=== PATIENT | female | born 1975 | race Caucasian/White ===

== ENCOUNTER → 2017-01-13 04:15 | Emergency (ER) | payer SELFPAY ==
[~2017-01-13 04:15] MED LIST: HYDROcodone/ACETAMIN 5-325 MG* 1 TAB PO ONE; Ketorolac INJ* 60 MG/2 ML VIAL IM ONE; Ondansetron ODT TAB* 4 MG PO ONE
[2017-01-13 07:13] LABS: Urine Bilirubin Negative (Negative); Urine Glucose Negative (Negative); Urine Nitrite Negative (Negative)
--- NOTE | 2017-01-13 09:03 | ED ---
Vernon Gary Alfonso, scribed for Li Crandall MD on 01/13/17 at 0629 . Headache - HPI Summary HPI Summary: This patient is a 41 year old F presenting to [facility] with a chief complaint of a frontal SAWANT gradually worsening since approximately 0300 today. The patient rates the pain 9/10 in severity. Symptoms aggravated by bright light. Symptoms alleviated by nothing. 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 Patient reports photophobia, dizziness, nausea, and vomiting. Patient denies fever, sinus pressure, neck pain, CP, SOB, and abdominal pain. Denies trauma or heavy lifting. PMHx includes HIV, states her counts are "undetectable". Pt denies hx migraine. No fam hx of aneurysm. Pt is from [place] and gets her HIV care in [place]. States she is here in [place] to help her nephew who has been snorting illicit drugs. - History Of Current Complaint Chief Complaint: EDHeadache Stated Complaint: HEADACHE Time Seen by Provider: 01/13/17 05:38 Hx Obtained From: Patient Hx Last Menstrual Period: hysterectomy Onset/Duration: Gradual Onset, Started hours ago, Still Present Currently Pain Is: Current Pain Scale(0-10)= - 9/10 Timing: Constant Character: Pressure Location of Headache: Frontal Aggravating Factor: Bright Lights Allevating Factors: Nothing Associated Signs And Symptoms: Other (Noted In Comments) - photophobia, dizziness, nausea, and vomiting. Patient denies fever, sinus pressure, neck pain , CP, SOB, and abdominal pain. - Risk Factors Meningitis Risk Factors: Immune Deficiency - Allergies/Home Medications Allergies/Adverse Reactions: Allergies Allergy/AdvReac Type Severity Reaction Status Date / Time No Known Allergies Allergy Verified 01/13/17 07:01 PMH/Surg Hx/FS Hx/Imm Hx Previously Healthy: No - HIV+ Opthamlomology History: Denies: Hx Legally Blind EENT History: Denies: Hx Deafness - Surgical History Surgery Procedure, Year, and Place: hysterectomy Infectious Disease History: Yes Infectious Disease History: Reports: Hx Human Immunodeficiency Virus (HIV) Denies: Traveled Outside the US in Last 30 Days - Family History Known Family History: Positive: Diabetes - Social History Alcohol Use: Rare Substance Use Type: Reports: None Smoking Status (MU): Heavy Every Day Tobacco Smoker Review of Systems Negative: Fever Positive: Photophobia Positive: Other - Negative sinus pressure Negative: Chest Pain Negative: Shortness Of Breath Positive: Vomiting, Nausea. Negative: Abdominal Pain Positive: Other - Negative neck pain Skin: Negative Neurological: Other - dizziness Positive: Headache Psychological: Normal All Other Systems Reviewed And Are Negative: Yes Physical Exam Triage Information Reviewed: Yes Vital Signs On Initial Exam: Initial Vitals Temp Pulse Resp BP Pulse Ox 97.6 F 84 20 126/69 100 01/13/17 04:23 01/13/17 04:23 01/13/17 04:23 01/13/17 04:23 01/13/17 04:23 Vital Signs Reviewed: Yes Appearance: Positive: Well-Appearing, Well-Nourished, Pain Distress Skin: Positive: Warm, Skin Color Reflects Adequate Perfusion Head/Face: Positive: Normal Head/Face Inspection Eyes: Positive: EOMI, MANN, Conjunctiva Clear, Other: - Fundi: discs are sharp and flat. Photophobia. ENT: Positive: Normal ENT inspection, Hearing grossly normal, Pharynx normal, TMs normal Neck: Positive: Supple, Nontender, No Lymphadenopathy, Other: - Good chin to chest, neg Kernig's and Brudzinski Respiratory/Lung Sounds: Positive: Clear to Auscultation, Breath Sounds Present , Other - No respiratory distress Cardiovascular: Positive: RRR, Pulses are Symmetrical in both Upper and Lower Extremities, Other - Brisk capillary refill. Negative: Murmur Abdomen Description: Positive: Nontender, Soft Bowel Sounds: Positive: Present Musculoskeletal: Positive: Strength/ROM Intact Neurological: Positive: Sensory/Motor Intact, Alert, Oriented to Person Place, Time, CN Intact II-III, Normal Gait, Facial Symmetry, Speech Normal Psychiatric: Positive: Normal - Arnold Coma Scale Coma Scale Total: 15 Diagnostics - Vital Signs Vital Signs Temp Pulse Resp BP Pulse Ox 01/13/17 04:23 97.6 F 84 20 126/69 100 - Laboratory Lab Results: Lab Results 01/13/17 Range/Units 07:00 Urine Color Straw Urine Appearance Clear Urine pH 5.0 (5-9) Ur Specific [place] 1.005 L (1.010-1.030) Urine Protein Negative (Negative) Urine Ketones Negative (Negative) Urine Blood Negative (Negative) Urine Nitrate Negative (Negative) Urine Bilirubin Negative (Negative) Urine Urobilinogen Negative (Negative) Ur Leukocyte Esterase Negative (Negative) Urine Glucose Negative (Negative) Lab Statement: Any lab studies that have been ordered have been reviewed, and results considered in the medical decision making process. Re-Evaluation - Re-Evaluation First Eval Re-Evaluation Time: 08:20 - still rates pain a "5" after toradol and zofran Change: Improved Headache Course/Dx - Course Assessment/Plan: This patient is a 41 year old F presenting to [facility] with a chief complaint of a frontal SAWANT gradually worsening since approximately 0300 today. The patient rates the pain 9/10 in severity. Symptoms aggravated by bright light. Symptoms alleviated by nothing. 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 Patient reports photophobia, dizziness, nausea, and vomiting. Patient denies fever, sinus pressure, neck pain, CP, SOB, and abdominal pain. PMHx includes HIV. In the ED course the patient was given Toradol and Zofran and hydrocodone/acetaminophen 5/325 with relief of her symptoms. [facility] pharmacy called and advised not to fill hydrocodone RX. RX sent to [facility]. - Diagnoses Differential Diagnosis/HQI/PQRI: Migraine, Sinus Headache, Tension Headache Provider Diagnoses: Headache Discharge - Discharge Plan Condition: Stable Disposition: HOME Prescriptions: HYDROcodone/ACETAMIN 5-325 MG* [[place] 5-325 TAB*] 1 tab PO Q6H PRN #12 tab MDD 4 PRN Reason: Pain Ondansetron ODT TAB* [Zofran 4 MG Odt TAB*] 4 mg PO Q6H PRN #12 tab.odt PRN Reason: Nausea Patient Education Materials: Acute Headache (ED) Referrals: Non Staff,Doctor [Primary Care Provider] - Additional Instructions: You received toradol injectable, zofran and hydrocodone/acetaminophen 5/325mg in the ER with relief of your headache. F/u with your nurse practitioner or return to the ER if you have any new or worsening symptoms. The documentation as recorded by the Vernon allen Alfonso accurately reflects the service I personally performed and the decisions made by , Li Crandall MD.
[2017-01-13 09:15] VITALS: BP 122/64
--- NOTE | 2017-01-14 01:49 | ED ---
Progress - Progress Note Progress Note: 01/13/17 1900: [facility] from [facility] questioning whether to fill hydrocodone RX, noting that pt has oxycodone 10 filled less than one month ago. Pt was not i-stopped by myself prior to DC. Agree with pharmacist not to fill hydrocodone. Hydrocodone RX cancelled. B Raz RUIZ. Re-Evaluation - Re-Evaluation First Eval Re-Evaluation Time: 08:20 - still rates pain a "5" after toradol and zofran Change: Improved Course/Dx - Diagnoses Provider Diagnoses: Headache
== END | disposition home or self-care (01) ==
LOC: ED 04:15
DX: R51 Headache (principal); B20 Human immunodeficiency virus [HIV] disease
CPT/HCPCS: 81003; 96372; 99282; A9270-GY; J1885

== ENCOUNTER 2018-04-15 11:09 | Inpatient (IN) | payer MEDICAID ==
[2018-04-15] MEDS ORDERED: NS 0.9% 1000 ML** 1,000 ML IV ONE (11:57)
--- NOTE | 2018-04-15 11:57 | ED ---
Headache - HPI Summary HPI Summary: A 42 y/o female brought in by [facility] ambulance presents to [facility] with a chief complaint of a severe headache since 10:15 04/15/17. The patient also c/o dizziness, N/V , and intermittent tingling in both of her hands. She states that her symptoms all came on within a minute. She describes her dizziness as like she is about to faint. She is photophobic and states that since her onset of her headache her vision was "hazy". She also c/o left sided weakness. Her headache is left frontal and she describes this headache as the worst she ever had. She denies neck pain, CP, SOB, fever and flu-like symptoms. Her speech is normal. Dr. Crandall in room at 11:50 for exam. No Hx of CVA or kidney problems. Roseanne Jang called at 11:57. Taken to CT at 12:[address] Rob[address] and Dr. Crandall. Pt with hx HIV, cared for at [facility], with CD4 count "in 500s". She takes Biktarvy, Trazadone, Neurontin and Xanax. She denies a Hx of migraines. [facility] records show one prior visit for headache that resolved with pain medication in 01/2017. Vital signs while in room: HR: 79 bpm, BP 132/96 - History Of Current Complaint Chief Complaint: EDEyeProblem Stated Complaint: HEADACHE Time Seen by Provider: 04/15/18 11:43 Hx Obtained From: Patient, Medical Records Hx Last Menstrual Period: hysterectomy Onset/Duration: Sudden Onset, Started hours ago, Still Present Initially Headache Was: "Worst Headache Ever", Initial Pain Scale(0-10)= - 10 Currently Pain Is: Current Pain Scale(0-10)= - 10 Timing: Constant Character: Unable To Describe - Worst headache she has ever had Location of Headache: Frontal - left Radiates to: no Aggravating Factor: Bright Lights Allevating Factors: Nothing Associated Signs And Symptoms: Negative - fever, neck pain, chest pain, SOB, Dizziness, Nausea, Vomiting, Visual Changes - "hazy" - Allergies/Home Medications Allergies/Adverse Reactions: Allergies Allergy/AdvReac Type Severity Reaction Status Date / Time Gadolinium-Containing Allergy Severe Shortness Verified 04/15/18 12:16 Contrast Medi of Breath Home Medications: Home Medications ALPRAZolam TAB* [Xanax TAB*] 1 mg PO TID PRN 04/15/18 [History Confirmed ] Bictegrav/Emtricit/Tenofov Ala [Biktarvy 50-200-25 mg Tablet] 1 tab PO DAILY 06/29 [History Confirmed 04/15/18] Gabapentin CAP(*) [Neurontin 400 mg CAP(*)] 800 mg PO DAILY 04/15/18 [History Confirmed 04/15/18] traZODone TAB* [Desyrel TAB*] 150 mg PO BEDTIME 04/15/18 [History Confirmed 06/29] PMH/Surg Hx/FS Hx/Imm Hx Previously Healthy: No - HIV with good CD4 counts History: Denies: Hx Kidney Infection Sensory History: Denies: Hx Legally Blind, Hx Deafness Opthamlomology History: Denies: Hx Legally Blind Neurological History: Denies: Hx CVA - Surgical History Surgery Procedure, Year, and Place: hysterectomy Infectious Disease History: No Infectious Disease History: Reports: Hx Human Immunodeficiency Virus (HIV) Denies: Traveled Outside the US in Last 30 Days - Family History Known Family History: Positive: Diabetes - Social History Alcohol Use: Rare Substance Use Type: Reports: None Smoking Status (MU): Heavy Every Day Tobacco Smoker Review of Systems Negative: Fever Eyes: Other - positive: vision was "hazy" Positive: Photophobia Negative: Chest Pain Negative: Shortness Of Breath Positive: Vomiting, Nausea Positive: no symptoms reported Musculoskeletal: Negative - neck pain Skin: Negative Neurological: Other - positive: dizziness, speech is normal Positive: Headache, Weakness - left sided , Paresthesia - both hands Psychological: Normal All Other Systems Reviewed And Are Negative: Yes Physical Exam - Summary Physical Exam Summary: Appearance: Ill-appearing, severe pain distress, well-nourished Skin: Warm, color reflects adequate perfusion, dry Head: Normal Head/Face inspection, atraumatic Eyes: Conjunctiva clear, PERRL, EOMI, no nystagmus ENT: Normal inspection, TMs clear, pharynx clear Neck: Supple, no nodes, no JVD, good chin to chest, no meningismus Respiratory: Lungs clear, normal breath sounds, no respiratory distress Cardio: RRR, No murmur, pulses normal, brisk capillary refill Abdomen: Soft, nontender, nondistended, no masses Bowel sounds: Present Musculoskeletal: Strength Intact/ROM intact, no calf tenderness, no edema. Psychological: Normal Neuro: Alert O x 3, CN II-XII intact, muscle tone normal, left arm and left leg weakness 4/5, sensation intact See NIH, NIH 2 Triage Information Reviewed: Yes Vital Signs On Initial Exam: Initial Vitals Temp Pulse Resp BP Pulse Ox 97.3 F 69 19 110/70 100 04/15/18 11:11 04/15/18 11:11 04/15/18 11:11 04/15/18 11:11 04/15/18 11:11 Vital Signs Reviewed: Yes - [place] Coma Scale Best Eye Response: 4 - Spontaneous Best Motor Response: 6 - Obeys Commands Best Verbal Response: 5 - Oriented Coma Scale Total: 15 Procedures - Lumbar Puncture Lateral Procedural Sedation: none Position: Lateral Decubitus Aseptic Technique: Local Anesthesia, Lidocaine Anesthesia Used: 2.0% Lido Spinal Needle Used: 22 Gauge Lumbar Puncture Note: Informed consent obtained. Time out procedure completed. Patient voices no questions or concerns. Understands risk vs. benefits. Patient in left lateral decubitus position, sterile technique. Betadine prep, 2% Lidocaine plain, local anesthesia, 5 mls #22 Gauge spinal needle inserted in L4-L5 interspace, clear fluid obtained, opening pressure 100cms H2O. Closing pressure 98cms H2O. Fluid sent for studies. Patient lying flat in no distress. Patient tolerated procedure well. Diagnostics - Vital Signs Vital Signs Temp Pulse Resp BP Pulse Ox 04/15/18 11:11 97.3 F 69 19 110/70 100 - Laboratory Result Diagrams: 04/16/18 06:15 04/16/18 06:15 Lab Statement: Any lab studies that have been ordered have been reviewed, and results considered in the medical decision making process. - Radiology CXR Radiology Interpretation Completed By: Radiologist Summary of Radiographic Findings: No evidence for acute intrathoracic disease. ED provider has reviewed this imaging report. - CT Head CTA CT Interpretation Completed By: Radiologist Summary of CT Findings: 1. Normal CT angiography of the head and neck. 2. There is no pathologic narrowing of the carotid arteries according to NASCET criteria. ED provider has reviewed this imaging report. Brain CT CT Interpretation Completed By: Radiologist Summary of CT Findings: No acute intracranial pathology. ED provider has reviewed this imaging report. Brain MRI CT Interpretation Completed By: Radiologist Summary of CT Findings: No intracranial lesion is identified. No evidence of restriction of diffusion. is noted. ED provider has reviewed this imaging report. - EKG 12:19 Cardiac Rate: Other Rate - Sinus arrythmia at [address] Segment: Non-Specific Ectopy: None Summary of EKG Findings: Sinus arrythmia at 63 bpm with nl AVIVCT, nl QTc, no acute changes and no prior EKG to compare with. Re-Evaluation - Re-Evaluation First Eval Re-Evaluation Time: 13:14 Change: Improved Comment: Discussed plan of lumbar puncture to eval for poss subarachnoid hemorrhage. HR 66 bpm, BP 118/72, O2 Sat 98. Second Eval Re-Evaluation Time: 13:32 Change: Unchanged Comment: Lumbar puncture being done. Third Eval Re-Evaluation Time: 15:30 Change: Unchanged Comment: MRI says MRI will happen at 16:00, patient continues to complain of pain, patient will be given fentanyl 100mcg, advised CSF results are negative so far. Fourth Eval Re-Evaluation Time: 17:35 Change: Unchanged Comment: Discussed results of brain MRI with patient. Still has a SAWANT rates it a 7. Plan admission for pain control. Headache Course/Dx - Course Course Of Treatment: A 42 y/o female brought in by [facility] ambulance presents to [facility] with a chief complaint of a severe headache since 10:15 04/15/17. Her NIH was 2 as she had left arm and left leg weakness. Roseanne Jang was called at 11:57. Dr. Roberson, neuro, evaluated the patient.Her EKG showed sinus arrythmia at [address], CTA head and neck, and CXR were negative. Lumbar puncture done to eval for possible subarachnoid hemorrhage despite neg CT brain (after informed consent)(see procedure note) and CSF results are negative for subarachnoid hemorrhage and infection. In the ED course the patient was given Lidocaine for local anesthesia for LP, Zofran and Dilaudid, Fentanyl IV and IV NS. Brain MRI was negative. Case discussed with Dr. Love, hospitalist, and she accepted the patient for admission for pain control and further evaluation. The patient is agreeable with this plan. - Diagnoses Differential Diagnosis/HQI/PQRI: CVA, Meningitis, Migraine, Subarachnoid Hemorrhage, Tension Headache - 30 mins Provider Diagnoses: Thunderclap headache, Intractable pain During the Visit The Following Alert/Code Occurred: Code Quan - 11:57am - Physician Notifications Discussed Care Of Patient With: Ramona Love Time Discussed With Above Provider: 15:45 Instructed by Provider To: Admit As Inpatient - Critical Care Time Critical Care Time: 30-74 min - 30 mins Discharge - Sign-Out/Discharge Documenting (check all that apply): Patient Departure - admit - Discharge Plan Condition: Good Disposition: ADMITTED TO [facility] - Billing Disposition and Condition Condition: GOOD Disposition: Admitted to [facility] - Attestation Statements Document Initiated by Scribe: Yes Documenting Scribe: Tyler Pablo Provider For Whom Vickiee is Documenting (Include Credential): Dr. Li Crandall MD Scribe Attestation: Tyler Gary scribed for Dr. Li Crandall MD on 04/22/18 at 2315. Scribe Documentation Reviewed: Yes Provider Attestation: The documentation as recorded by the kapilibTyler schmitt accurately reflects the service I personally performed and the decisions made by me, Dr. Li Crandall MD Status of Scribe Document: Viewed NIH Scale - NIH Scale Level of Consciousness: Alert/Keenly Responsive Ask Patient the Month and His/Her Age: Both Correct Ask Pt to Open/Close Eyes and Spool Winder/Release Non-Paretic Hand: Both Correctly Best Gaze (Only Horizontal Eye Movement): Normal Visual Field Testing: No Visual Loss Facial Paresis-Pt to Smile & Close Eyes or Grimace Symmetry: Normal/Symmetrical Motor Function - Right Arm: No Drift-Holds 10 Seconds Motor Function - Left Arm: No Drift-Holds 10 Seconds Motor Function - Right Leg: No Drift-Holds 10 Seconds Motor Function - Left Leg: Drifts LT 10 seconds Limb Ataxia-Must be out of Proportion to Weakness Present: Absent Sensory (Use Pinprick to Test Arms/Legs/Trunk/Face): Pinprick Less on Affected Best Language (Describe Picture, Name Items): No Aphasia Dysarthria (Read Several Words): Normal Extinction and Inattention: No Abnormality Total Score: 2 Consult Consult: At 17:47 Discussed Code jang evaluation, LP and MRI results with Dr. Roberson, neuro who evaluated pt in ED upon initial presentation.
[2018-04-15] MEDS ORDERED: Iodixanol* (CONTRAST) 320 MG/ML 100 ML SDV IV ONE (12:13)
[2018-04-15] MEDS ORDERED: HYDROmorphone INJ1* 1 MG/ML SYRINGE IV SLOW PU ONE ×2 (12:30→13:15)
[2018-04-15] MEDS ORDERED: Ondansetron INJ* 2 MG/ML VIAL IV ONE (12:32)
[2018-04-15 12:37] LABS: ABS Basophils 0 10^3/ul (0-0.2); ABS Eosinophils 0.1 10^3/ul (0-0.6); ABS Lymphocytes 1.6 10^3/ul (1.0-4.8); ABS Monocytes 0.7 10^3/ul (0-0.8); ABS Neutrophils 3.9 10^3/ul (1.5-7.7); ABS Nucleated RBC 0 10^3/ul; Eosinophil % 1.6 %; Hematocrit 40 % (35-47); Hemoglobin 13.6 g/dl (12.0-16.0); Lymphocyte % 25.1 %; Mean Corpuscular HGB Conc 34 g/dl (31-36); Mean Corpuscular Hemoglobin 31 pg (27-31); Mean Corpuscular Volume 91 fL (80-97); Mean Platelet Volume 7.6 fL (7.4-10.4); Nucleated Red Blood Cells % 0; Platelet Count 264 10^3/ul (150-450); Red Blood Count 4.36 10^6/ul (4.00-5.40); Red Cell Distribution Width 13 % (10.5-15); White Blood Count 6.4 10^3/ul (3.5-10.8)
[2018-04-15 12:42] LABS: Urine Appearance Clear; Urine Bilirubin Negative (Negative); Urine Blood Negative (Negative); Urine Color Straw; Urine Glucose Negative (Negative); Urine Ketones Negative (Negative); Urine Nitrite Negative (Negative); Urine Protein Negative (Negative); Urine Urobilinogen Negative (Negative)
[2018-04-15 12:46] LABS: Activated Partial Thrombo Time 29.6 seconds (26.0-36.3); INR 0.82 (0.77-1.02)
[2018-04-15 13:00] LABS: Albumin 4.1 g/dL (3.2-5.2); Albumin/Globulin Ratio 1.6 (1-3); BUN/Creatinine Ratio 23.8 (8-20); EGFR African American 73.1 (>60); EGFR Non-African American 60.4 (>60); Globulin 2.5 g/dL (2-4); HDL Cholesterol 46.4 mg/dL; Potassium 4.1 mmol/L (3.5-5.0); Total Bilirubin 0.2 mg/dL (0.2-1.0); Total Protein 6.6 g/dL (6.4-8.9)
[2018-04-15] MEDS ORDERED: Lidocaine 2% PF * 5 ML VIAL ONE (13:32)
[2018-04-15] MEDS ORDERED: Lidocaine 2% PF * 5 ML VIAL INJ ONE (13:33)
[2018-04-15 14:34] LABS: Body Fluid Source Cerebral Spinal
[2018-04-15 14:56] LABS: Body Fluid Mono 28 %
[2018-04-15 14:58] LABS: CSF Glucose 67 mg/dL (40-70)
[2018-04-15] MEDS ORDERED: fentaNYL* 50 MCG/ML 2 ML VIAL (100 MCG VIAL) IV SLOW PU ONE (15:31)
--- NOTE | 2018-04-15 15:47 | CONS ---
NEUROLOGY CONSULTATION: DATE OF CONSULT: 04/15/18 LOCATION: She is an inpatient in the emergency room 12. REFERRING PHYSICIAN: Dr. Crandall. CHIEF COMPLAINT: Headache. HISTORY OF PRESENT ILLNESS: Lashonda Ott is a 42-year-old woman who works for [employer] in [employer] who is at work this morning at around 10 o'clock when suddenly she had a severe left frontal and retroorbital headache. It was intense in onset and "the worst headache of my life." She vomited soon after that. She was sent by ambulance to the emergency room. In the emergency room, she continued by intense left frontal orbital headache. There was perhaps a little bit of blurry vision up to her left side, but it was fairly subtle. She did not have any initial additional symptoms to report and she did not lose consciousness at onset. With examination, however, she exhibited signs of diminished sensation on her left side and perhaps decreased coordination on her left side. She does not have any neck pain and no recent head trauma. She did not have prior history of headaches "like this" but she has been to the emergency room couple of years ago with a bad headaches, treated as a migraine. She states she gets a bad headache about every few months, but nothing like what she is having currently. She has not had any recent fevers, infections, sore throats, or change in medications. PAST MEDICAL HISTORY: Notable for HIV positivity with good control by her verbal report by her infectious disease specialist in [place]. MEDICATIONS: At home consist of: 1. Minipress 1 mg p.o. q.h.s. 2. Gabapentin 900 mg p.o. t.i.d. 3. Lidoderm patch daily. 4. Sertraline 25 mg p.o. daily. 5. Alprazolam 1 mg p.o. t.i.d. p.r.n. 6. Trazodone 150 mg p.o. q.h.s. 7. Zofran 4 mg p.o. q.6 hours p.r.n. 8. Biktarvy 1 p.o. daily. ALLERGIES: She had severe shortness of breath to GADOLINIUM, but no other drug allergies. PHYSICAL EXAM: She is well hydrated and well nourished and a bit overweight. Temperature 97.3, blood pressure initially 110/70 and has been as high as 143/83 , but not higher. Heart rate generally running in the 50s and 60s and regular. Respiratory rate 17 and oxygen saturation is 97% on room air. Heart is in a regular rhythm without murmurs. Lungs are clear anterolaterally. There are no cervical bruits. Neck is supple. Oral mucosa is moist. On neurological exam, pupils react equally from 4 down to 2 mm. Funduscopic exam is normal bilaterally. Visual desai are intact to confrontation with a sense of some blurriness in the inferior temporal field out of the left eye only when tested monocularly. Facial musculature is symmetric. Palate and tongue appear normal, and tongue protrudes in the midline, and there is no dysarthria. Facial sensation is reported as absent pinprick in the left side and decreased if not absent light touch in the left side, but normal sensation on the right. Motor exam in the limbs reveals good strength other than some weakness in the left upper extremity and some bobbing of the left limb with variable resistance in the left leg. Strength is otherwise normal in the limbs. Sensory exam is reported as diminished light touch and pin discrimination in the left arm and leg. Finger taps are telegraphic and irregular with the left hand, normal on the right. [id number] maneuver is normal. Reflexes are intact and symmetric and plantar responses are flexor bilaterally. She is alert, oriented and anxious. Her memory seems perfectly intact and language is fluent. DIAGNOSTIC STUDIES/LAB DATA: Includes a CT scan of the brain and CT angiogram of brain and neck, which I reviewed and which are all looking to be normal and are interpreted as such. EKG reveals sinus rhythm after review with Dr. Crandall, but it is interpreted electronically as atrial fibrillation. Other laboratory data notable for normal urinalysis, normal chemistry profile other than borderline creatinine of 1.01, normal lactic acid 0.8, and normal CBC and INR. IMPRESSION: Impression is that of a thunderclap headache. Differential diagnosis including subarachnoid hemorrhage, aneurysmal or otherwise, cervical dissection, reversible cerebral vasoconstrictive syndrome, hypertensive encephalopathy. The CTA and CT scan of the brain are reassuring. Discussed with Dr. Crandall that I recommend doing a lumbar puncture to increase the certainty that there is no subarachnoid hemorrhage. In regards to a possible cerebral ischemic event, I think it is very unlikely. I would not expect it to start paroxysmally other than with the dissection and none is evident. Her sensory exam and motor exam are bit inconsistent and sounds that those symptoms only developed in findings on exam when she got here. I suspect that anxiety is playing a role in that component. If her lumbar puncture is negative, I would recommend getting an MRI scan of the brain without contrast to look for evidence of CVST. If that is negative and her symptoms resolved with symptomatic therapy, then I think we can presume that this is a benign thunderclap headache, probably a manifestation of her previous migraines, and probably will need further workup. I will follow her along as the results of her study is come through. [id number]/[facility] #: [id number] MTDD
[2018-04-15] MEDS ORDERED: Ondansetron INJ* 2 MG/ML VIAL IV PRN (17:23)
[2018-04-15] MEDS ORDERED: Acetaminophen TAB* 325 MG PO PRN (17:23)
[2018-04-15] MEDS ORDERED: HYDROmorphone INJ* 1 MG/ML CARPUJECT SYRINGE IV SLOW PU PRN (17:25)
[2018-04-15] MEDS ORDERED: Metoclopramide IV* 5 MG/ML 2 ML VIAL IV SLOW PU ONE (17:37)
[2018-04-15] MEDS ORDERED: diPHENhydraMINE PO* 50 MG PO ONE (17:37)
[2018-04-15] MEDS ORDERED: Ketorolac INJ* 30 MG/ML 1 ML VIAL IV PUSH ONE (17:47)
[2018-04-15] MEDS ORDERED: Dexamethasone IV* 4 MG/ML 1 ML (4 MG) IV SLOW PU ONE (17:48)
[2018-04-15] MEDS: Metoclopramide IV* 5 MG/ML 2 ML VIAL IV SLOW PU SCH ×2 (18:25→23:15)
--- NOTE | 2018-04-15 19:39 | HP ---
CC: GAY Phillips; Dr. Lance Roberson * ADMISSION HISTORY AND PHYSICAL: DATE OF ADMISSION: 04/15/18 PRIMARY CARE PROVIDER: GAY Phillips, of the infectious disease group through [facility]. MY ATTENDING WHILE IN THE HOSPITAL: Dr. Ramona Love.* (DICTATED BY GAY DÍAZ) CONSULTING NEUROLOGIST: Dr. Lance Roberson. CHIEF COMPLAINT: Thunderclap headache. HISTORY OF PRESENT ILLNESS: Ms. Ott is a 42-year-old female with past medical history significant for HIV and migraines, who presents to the emergency department with sudden onset of unilateral severe headache at approximately 10:15 this morning with feelings of presyncope and nausea. The patient has had headaches like this before, but never anything nearly to this severity. The patient has had no recent changes in her meds. The patient's HIV is under good control per the patient and had a recent CD4 and HIV viral loads. The patient was transported to the emergency department and had a negative CT and CTA of her head. The patient had no recent illnesses. The patient had weakness on her left side along with decreased sensation and paresthesias in her bilateral hands. The patient did not take anything for her headache before coming in. The patient had no other aura-like symptoms except possibly a feeling of general unwellness this morning. The patient had no other changes in her vision. The patient denies fevers, chills, abdominal pain , diarrhea, dysuria. The patient has no known history of aneurysm. The patient has significant anxiety and depression, which she manages with alprazolam at home. The patient in the emergency department was seen in consultation by Dr. Lance Roberson, who recommended a head CTA and brain MRI believing this was a thunderclap headache, but needing to rule out subarachnoid hemorrhage. The patient had a negative lumbar puncture and negative brain CT and CTA; however, the patient was continuing to have severe headaches and we are asked to evaluate for admission for pain control. PAST MEDICAL HISTORY: 1. HIV positivity, on HAART. 2. Migraines. 3. Depression. 4. Anxiety. PAST SURGICAL HISTORY: Hysterectomy. MEDICATIONS: 1. Zofran 4 mg p.o. q.6 hours as needed. 2. Gabapentin 800 mg p.o. daily. 3. Trazodone 150 mg p.o. at bedtime. 4. Xanax 1 mg p.o. t.i.d. as needed. 5. Biktarvy 50/200/25 one tab p.o. daily. ALLERGIES: GADOLINIUM. FAMILY HISTORY: The patient's parents both have diabetes and hypertension. The patient's maternal grandfather of an ME. The patient's paternal grandmother of heart disease. The patient has a brother who is in good health. SOCIAL HISTORY: The patient is a current 7-bjduuutlz-jhi-day smoker. The patient drinks alcohol rarely and uses marijuana rarely. 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 The patient is estranged from her and has 2 children. The patient's surrogate decision maker will be her friend, Emily Crowley. REVIEW OF SYSTEMS: A 14-point review of systems was reviewed and is negative except as above in the HPI. PHYSICAL EXAMINATION GENERAL: The patient is a 42-year-old female, who appears stated age and sitting comfortably in bed, in no acute distress. VITAL SIGNS: Temperature 97.3, pulse rate 65, respiratory rate 21, oxygen saturation 93% on room air, blood pressure 105/73. HEENT: Head: Normocephalic, atraumatic. Sclerae anicteric. No conjunctival injection. Nasal mucosa moist. Oral mucosa moist. No pharyngeal erythema, discharge or exudate. NECK: Supple, nontender. No lymphadenopathy. No carotid bruits auscultated. No JVD. RESPIRATORY: Clear to auscultation bilaterally. No wheezes, rales, or rhonchi. Good air exchange bilaterally. CARDIAC: Regular rate and rhythm. No clicks, murmurs, gallops, or rubs. Pulses are 2+ in the bilateral dorsalis pedis, posterior tibialis, and radial areas. No bilateral lower extremity edema noted. ABDOMEN: Soft, nontender, nondistended. Bowel sounds present and normoactive in all 4 quadrants. No hepatosplenomegaly. No abdominal bruits auscultated. No hepatojugular reflux. GENITOURINARY: No suprapubic or CVA tenderness. NEUROLOGIC: The patient has decreased sensation to light touch on the entirety of the left side of her body as well as 4/5 strength in the left upper and lower extremities distally and proximally. The patient has no difficulty with cerebellar testing. Cranial nerves are otherwise intact. No focal deficits. Alert and oriented x3. PSYCHIATRIC: Pleasant and cooperative. SKIN: Clean, dry, and intact. No rash. DIAGNOSTIC STUDIES/LAB DATA: White blood cell count of 6.4, hemoglobin 13.6, hematocrit 40, platelet count 264. INR of 0.82, APTT 29.6. Sodium 139, potassium 4.1, chloride 106, carbon dioxide 29, anion gap 4, BUN 24, creatinine 1.01, glucose 90, lactic acid 0.8, calcium 9.0. Bilirubin 0.2, AST 16, ALT 15, alkaline phosphatase 63. Troponin I of 0.00. Total protein 6.6, albumin 4.1, globulin 2.5. Triglycerides 256, cholesterol 169, LDL cholesterol 71, HDL cholesterol 46.4. Urine benign. CSF shows 1 white blood cell, 0 neutrophils, glucose 67, protein of 29. Studies: Brain CT read as no acute intracranial pathology. Chest x-ray read as no evidence for intrathoracic disease. Head CTA read as no pathologic narrowing of the carotid arteries according to NASCET criteria. No need for CT head and neck. Brain MRI read as no intracranial lesion is noted. No evidence of restriction or diffusion is noted. EKG is unremarkable. ASSESSMENT AND PLAN/IMPRESSION: Ms. Ott is a 42-year-old female with past medical history significant for migraines, human immunodeficiency virus positivity, who presents to the emergency department with a thunderclap headache of sudden onset with associated nausea and unilateral weakness and decreased sensation. The patient's LP and brain imaging have successfully ruled out an aneurysm or hemorrhage. The patient will be admitted to the hospital for symptomatic migraine treatment. 1. Thunderclap headache. The patient has been ruled out with a CTA, lumbar puncture and MRI for vasospastic disease as well as intracranial hemorrhage or acute stroke. 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 The patient will be treated in the emergency department with Reglan, Toradol, steroids. The patient has already received 3 mg of IV Dilaudid and 100 mcg of fentanyl. The patient will have Toradol and Reglan available as needed for continued headaches. The patient has been seen in consultation by Dr. Lance Roberson, who made these recommendations. 2. Human immunodeficiency virus positivity. Continue the patient's HAART while in the hospital. 3. Anxiety/depression. Continue the patient's gabapentin, alprazolam, and trazodone while in the hospital. 4. DVT prophylaxis: The patient will be placed on heparin subcu. 5. Fluids, electrolytes, nutrition: The patient will have a heart-healthy diet with caffeine okay and will have fluids at 100 mL an hour. 6. Code status: The patient is a full code. TIME SPENT: Approximately 60 minutes was spent on the admission of this patient , 30 of which was spent [id number] with the patient obtaining history and physical and discussing treatment plan. This plan was discussed with my attending, Dr. Ramona Love, and she is in agreement. GAY DÍAZ [id number]/CPS #: [id number] JERONIMO
[2018-04-15] MEDS: ALPRAZolam TAB* 0.5 MG PO PRN (20:41)
[2018-04-15] MEDS: NS 0.9% 1000 ML** 1,000 ML IV SCH (20:44)
[2018-04-15] MEDS ORDERED: traZODone TAB* 100 MG PO SCH (21:00)
[2018-04-15] MEDS: Heparin VIAL(*) 5000 UNITS/ML VIAL (FIVE THOUSAND) SUBCUT SCH (21:31)
[2018-04-15] MEDS: Ketorolac INJ* 15 MG/ML 1 ML VIAL IV PUSH PRN (21:47)
[2018-04-16] MEDS: Metoclopramide IV* 5 MG/ML 2 ML VIAL IV SLOW PU SCH ×3 (04:58→17:14)
[2018-04-16] MEDS: Heparin VIAL(*) 5000 UNITS/ML VIAL (FIVE THOUSAND) SUBCUT SCH ×2 (04:58→15:05)
[2018-04-16 06:35] LABS: ABS Basophils 0 10^3/ul (0-0.2); ABS Eosinophils 0 10^3/ul (0-0.6); ABS Monocytes 0.3 10^3/ul (0-0.8); ABS Neutrophils 4.3 10^3/ul (1.5-7.7); ABS Nucleated RBC 0 10^3/ul; Eosinophil % 0.2 %; Hematocrit 39 % (35-47); Hemoglobin 13.5 g/dl (12.0-16.0); Lymphocyte % 17.8 %; Mean Corpuscular HGB Conc 34 g/dl (31-36); Mean Corpuscular Hemoglobin 32 pg (27-31); Mean Corpuscular Volume 92 fL (80-97); Mean Platelet Volume 7.6 fL (7.4-10.4); Nucleated Red Blood Cells % 0; Platelet Count 239 10^3/ul (150-450); Red Blood Count 4.29 10^6/ul (4.00-5.40); Red Cell Distribution Width 13 % (10.5-15); White Blood Count 5.7 10^3/ul (3.5-10.8)
[2018-04-16 06:53] LABS: BUN/Creatinine Ratio 22.7 (8-20); Calcium 8.7 mg/dL (8.6-10.3); EGFR African American 85.7 (>60); EGFR Non-African American 70.8 (>60); Potassium 4.1 mmol/L (3.5-5.0)
[2018-04-16] MEDS ORDERED: Gabapentin CAP(*) 400 MG PO SCH (09:00)
[2018-04-16] MEDS ORDERED: [UNRECOGNIZED DRUG - OTHER] PO SCH (09:00)
[2018-04-16] MEDS: Ketorolac INJ* 15 MG/ML 1 ML VIAL IV PUSH PRN ×2 (09:01→15:03)
[2018-04-16] MEDS: NS 0.9% 1000 ML** 1,000 ML IV SCH (09:06)
[2018-04-16] MEDS: ALPRAZolam TAB* 0.5 MG PO PRN ×2 (09:23→15:02)
[2018-04-16] MEDS: HYDROmorphone INJ1* 1 MG/ML SYRINGE IV SLOW PU PRN ×2 (11:04→15:28)
[2018-04-16 14:26] LABS: CSF VDRL Negative (Negative)
[2018-04-16 18:06] VITALS: BP 120/65
[2018-04-16 18:46] LABS: HSV 1 PCR, CSF Negative (Negative); HSV 2 PCR, CSF Negative (Negative)
--- NOTE | 2018-04-17 00:33 | DS ---
DISCHARGE SUMMARY: DATE OF ADMISSION: 04/15/18 DATE OF DISCHARGE: 04/16/18 PRIMARY CARE PROVIDER: GAY Burton, of infectious disease group through [facility]. CONSULTING PHYSICIAN: Dr. Lance Roberson, neurology. ATTENDING PHYSICIAN: Dr. Bright Quijano * (dictated by Shannon Workman NP). PRIMARY DIAGNOSIS: Headache. SECONDARY DIAGNOSES: 1. Human immunodeficiency virus positive, on HAART. 2. Migraines. 3. Depression. 4. Anxiety. CONSULTATIONS WHILE IN THE HOSPITAL: Dr. Roberson, neurology. PROCEDURES WHILE IN THE HOSPITAL: None. STUDIES WHILE IN THE HOSPITAL: 1. Brain CT: Impression: No acute intracranial pathology. 2. Chest x-ray: Impression: No evidence of acute intrathoracic disease. 3. Electrocardiogram: Impression: Normal sinus rhythm with rate of 55 to 68. 4. Head CTA: Impression: Normal CT angiography of the head and neck. There is no pathological narrowing of the carotid arteries according to the NASCET criteria. 5. Brain MRI: Impression: No intracranial lesion is identified. No evidence of restriction of diffusion is noted. DISCHARGE MEDICATIONS: [place] Medications: 1. Tramadol 25 mg p.o. q.8 hours p.r.n. migraine/headache. 2. Reglan 5 mg p.o. q.8 hours p.r.n. migraine/headache. Continued Home medications: 1. Gabapentin 800 mg p.o. daily. 2. Xanax 1 mg p.o. t.i.d. p.r.n. 3. Trazodone 150 mg p.o. at bedtime. 4. Zofran 4 mg p.o. q.6 hours p.r.n. 5. Biktarvy 1 tab p.o. daily. No home medications were discontinued or changed. HISTORY OF PRESENT ILLNESS/HOSPITAL COURSE: Ms. Ott is a 42-year-old female with past medical history significant for HIV and migraines who presented to the emergency room on 04/15/18 with the sudden onset of unilateral severe headache at approximately 10:15 this morning. Please see history and physical dictated by Fredi Herzog for complete summary of [id number] admission, but in short the patient presented to the ED with a headache, and due to severity of headache and report of "thunderclap headache" and describing headache as worse than her normal migraines, the patient underwent further eval. While in the ED, the patient had a CTA and brain MRI in order to rule out subarachnoid hemorrhage which were negative. In addition, the patient had a negative lumbar puncture. Due to the severity of the headache and the patient requiring IV pain medications, she was admitted to the hospital for pain control and observation. During this hospital stay, the patient was receiving IV pain medication including Dilaudid 1 mg, Toradol 15 mg. In addition, she was receiving Reglan 10 mg. She was also reevaluated by Dr. Lance Roberson today. The patient states her headache has improved and she would like to be discharged. Ms. Ott is stable for discharge. Vital signs as follows: Temp 98.1, HR 83, RR 18, O2 saturation 98% on room air, BP 120/65. REVIEW OF SYSTEMS: The patient reports she continues to have a headache, but it is less severe than previously. She denies dizziness, numbness, tingling, difficulty finding words, difficulty swallowing, lightheadedness, chest pain, palpitations, nausea, vomiting. A 12-point review of systems was completed and all others negative. PHYSICAL EXAM: General: Ms. Ott is a 42-year-old female who appears stated age and is sitting comfortably in bed. She is in no acute distress. HEENT: EOMs intact. PERRLA. Oral mucosa moist without lesions. Neck: Supple, nontender. No lymphadenopathy. Respiratory: Clear to auscultation bilaterally. No wheezes, rhonchi, or rales. Good aeration. Cardiac: Regular rate and rhythm. No murmurs, rubs, or gallops. Pedal pulses 2+ bilaterally. No lower extremity edema. Abdomen: Soft, nontender, nondistended. Bowel sounds x4. Neurological: Sensation is grossly intact. Strength in the upper and lower extremities is 5/5 bilaterally. Cranial nerves intact. No focal deficits. Alert and oriented x4. Psychiatric: The patient is pleasant and cooperative. Skin: Clean, dry, intact. LABORATORY DATA: WBC 5.7, hemoglobin 13.5, hematocrit 39. Sodium 137, potassium 4.1, chloride 109, carbon dioxide 23, BUN 20, creatinine 0.88. FOLLOWUP/DISCHARGE PLAN: 1. Headache/migraine: The patient is expressing relief as migraine/headache pain has decreased. Dr. Roberson was consulted and agrees this is possibly migraine headache. The patient has been cleared for discharge by Neurology. The patient will be discharged with Ultram and Reglan p.o. p.r.n. I personally reviewed the patient's I-STOP and she last received controlled substance in early March and it was only 14 days' worth. The patient should follow up with her primary care provider for further evaluation/treatment of headaches. If the headaches/migraines persist, Dr. Roberson would be happy to see her as an outpatient for further evaluation and treatment. I have provided the patient with Dr. Roberson's contact information. 2. HIV positive: Continue HAART. 3. Anxiety and depression: Continue gabapentin, alprazolam, trazodone. 4. Education: The patient should return to the ER or nearest hospital if she experiences any worsening of symptoms, shortness of breath, lightheadedness, dizziness, chest discomfort, high fevers, chills, night sweats, loss of consciousness, or any other worsening signs or symptoms. This is a summarized report of a complex medical history and hospital stay. For further details, please see the entire medical record. The plan was also discussed with my attending, Dr. Quijano, who agrees with my plan. TIME SPENT: Approximately 45 minutes were spent on this discharge, greater than half that time was spent [id number] with the patient discussing the discharge plans and instructions. SHANNON WORKMAN, [place] [id number]/[facility] #: [id number] JERONIMO
[2018-04-17 21:40] LABS: B. garinii/B. afzellii PCR Negative (Negative); Lyme Disease Source CSF
== END 2018-04-16 19:00 | disposition home or self-care (01) | DRG 103 ==
LOC: ED 11:09 → MEDTELE 17:23 → OBSVTOIN 04-16 16:00
PROVIDERS: ADMIT Hospitalist; ATTEND Internal Medicine
PROC: 009U3ZX Drainage of Spinal Canal, Percutaneous Approach, Diagnostic (ICD-10-PCS; principal; 2018-04-15)
DX: G44.53 Primary thunderclap headache (principal); G43.909 Migraine, unspecified, not intractable, without status migrainosus; Z21 Asymptomatic human immunodeficiency virus [HIV] infection status; F32.9 Major depressive disorder, single episode, unspecified; F41.9 Anxiety disorder, unspecified; F17.200 Nicotine dependence, unspecified, uncomplicated; R40.2362 Coma scale, best motor response, obeys commands, at arrival to emergency department; R40.2142 Coma scale, eyes open, spontaneous, at arrival to emergency department; R40.2252 Coma scale, best verbal response, oriented, at arrival to emergency department; I49.9 Cardiac arrhythmia, unspecified; R29.702 NIHSS score 2; Z90.710 Acquired absence of both cervix and uterus; Z83.3 Family history of diabetes mellitus; Z91.041 Radiographic dye allergy status
CPT/HCPCS: 36415; 70450; 70496; 70498; 70551; 71045; 80048; 80053; 80061; 81003; 82945; 83605; 84157; 84484; 85025; 85610; 85730; 86592; 86850; 86900; 86901; 87070; 87205; 87476; 87529; 87798; 87899; 89051; 93005; 96374; 96375; 99285; A9270-GY; G0378; J1100; J1170; J1644; J1885; J2405; J2765; J3010; Q9967

== ENCOUNTER → 2018-04-28 20:02 | Emergency (ER) | payer SELFPAY ==
[~2018-04-28 20:02] MED LIST changes: -HYDROcodone/ACETAMIN 5-325 MG* 1 TAB PO ONE; +Ketorolac INJ* 30 MG/ML 1 ML VIAL IV PUSH ONE; -Ketorolac INJ* 60 MG/2 ML VIAL IM ONE; +LORazepam TAB(*) 1 MG PO ONE; +NS 0.9% 1000 ML* 1,000 ML IV ONE; -Ondansetron ODT TAB* 4 MG PO ONE; +PROCHLORPERAZINE INJ 5 MG/ML 2 ML VIAL IV ONE; +hydrOXYzine HCL TAB* 50 MG PO ONE
--- NOTE | 2018-04-28 20:29 | ED ---
Headache - HPI Summary HPI Summary: A 42 y/o female accompanied by her daughter presents to the ED c/o headache reaching 10/10 in severity. In the ED room, the patient has a pulse of 92 BPM, O2 saturation of 93%, and blood pressure of 100/61. Additionally c/o syncopal episode. As per triage, "Pt presents to ED for syncopal episode 1 hr ago. Pt states she woke up outside in the snow and walked home. Abrasion to right knee. Now pt complains of severe headache and nausea". According to the patient, she left the hospital yesterday. She stated that today, she was getting off the bus and walking to her home when the next thing she realizes is waking up on the ground as she had LOC. Patient stated that there were no warning signs such as lightheadedness, except a severe headache she has been experiencing since leaving the hospital. 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 The patient scrapped her right knee due to the fall. Patient is unsure how long she was unconscious but she doesn't think long. She stated that she got up and walked the rest of the way home after. - History Of Current Complaint Chief Complaint: EDHeadache Stated Complaint: ANXIETY Time Seen by Provider: 04/28/18 20:09 Hx Obtained From: Patient Hx Last Menstrual Period: hysterectomy Onset/Duration: Sudden Onset, Started days ago, Still Present, Worse Since Initially Headache Was: "Worst Headache Ever", Severe - 10/10 Currently Pain Is: Severe - 10/10 Timing: Constant Character: Migraine Location of Headache: Diffuse Radiates to: NO Aggravating Factor: Bright Lights Allevating Factors: Nothing Associated Signs And Symptoms: Nausea - Allergies/Home Medications Allergies/Adverse Reactions: Allergies Allergy/AdvReac Type Severity Reaction Status Date / Time Gadolinium-Containing Allergy Severe Shortness Verified 04/28/18 20:12 Contrast Medi of Breath PMH/Surg Hx/FS Hx/Imm Hx Cardiovascular History: Denies: Hx Pacemaker/ICD Respiratory History: Reports: Hx Pneumonia History: Denies: Hx Kidney Infection Musculoskeletal History: Reports: Hx Back Problems Sensory History: Denies: Hx Contacts or Glasses, Hx Legally Blind, Hx Deafness, Hx Hearing Aid Opthamlomology History: Denies: Hx Contacts or Glasses, Hx Legally Blind Neurological History: Reports: Hx Seizures Denies: Hx CVA, Hx Headaches, Hx Migraine, Hx Nerve Disease, Hx Spinal Cord Injury Psychiatric History: Denies: Hx Panic Disorder - Surgical History Surgery Procedure, Year, and Place: hysterectomy Infectious Disease History: No Infectious Disease History: Reports: Hx Human Immunodeficiency Virus (HIV) Denies: Hx of Known/Suspected MRSA, Traveled Outside the [place] in Last 30 Days - Family History Known Family History: Positive: Diabetes - Social History Alcohol Use: Rare Substance Use Type: Reports: None Smoking Status (MU): Heavy Every Day Tobacco Smoker Review of Systems Negative: Fever Positive: Photophobia Positive: Nausea Neurological: Other - NEGATIVE: LIGHTHEADEDNESS Positive: Headache, Syncope All Other Systems Reviewed And Are Negative: Yes Physical Exam - Summary Physical Exam Summary: Appearance: Well-appearing, Well-nourished, lying in bed comfortably. Patient is somewhat anxious and tearful. Skin: Warm, dry, no obvious rash Eyes: sclera anicteric, no conjunctival pallor ENT: mucous membranes moist, pharynx appears normal Neck: Supple, nontender Respiratory: Clear to auscultation, no signs of respiratory distress Cardiovascular: Normal S1, S2. No murmurs. Normal distal pulses in tibial and radial bilaterally. Abdomen: Soft, nontender, normal active bowel sounds present Musculoskeletal: Normal, Strength/ROM Intact, Motor function in all 4 extremities is normal and symmetric. There is no rigidity or tremor noted. Neurological: A&Ox3, awake and alert, mentation is normal, speech is fluent and appropriate, Level of consciousness nml. The patient is alert and oriented. Cranial nerves are grossly intact. Gaze is conjugate and without nystagmus. Peripheral vision is intact to confrontation. There are no gross sensory abnormalities to light touch. There is no truncal or fine motor ataxia. Gait is normal. Psychiatric: affect is normal, does not appear anxious or depressed GCS: 15 Triage Information Reviewed: Yes Vital Signs On Initial Exam: Initial Vitals Temp Pulse Resp BP Pulse Ox 98.1 F 85 19 100/61 98 04/28/18 20:08 04/28/18 20:08 04/28/18 20:08 04/28/18 20:08 04/28/18 20:08 Vital Signs Reviewed: Yes - Valentín Coma Scale Best Eye Response: 4 - Spontaneous Best Motor Response: 6 - Obeys Commands Best Verbal Response: 5 - Oriented Coma Scale Total: 15 Diagnostics - Vital Signs Vital Signs Temp Pulse Resp BP Pulse Ox 04/28/18 20:08 98.1 F 85 19 100/61 98 - Laboratory Result Diagrams: 04/28/18 20:55 04/28/18 20:55 Lab Statement: Any lab studies that have been ordered have been reviewed, and results considered in the medical decision making process. - CT BRAIN CT CT Interpretation Completed By: Radiologist Summary of CT Findings: 1. No acute intracranial abnormality. 2. No change from the comparison study. ED PHYSICIAN REVIEWED THIS RADIOLOGY REPORT. - EKG 2054 Cardiac Rate: NL - 74 BPM EKG Rhythm: Sinus Rhythm - 74 BPM Summary of EKG Findings: NSR at 74 BPM, P waves, QRS complex, and T waves are within normal limits, T waves and intervals are normal, no ischemic changes. This is a normal EKG. Headache Course/Dx - Course Course Of Treatment: A 42 y/o female accompanied by her daughter presents to the ED c/o headache reaching 10/10 in severity. According to the patient, she left the hospital yesterday. She stated that today, she was getting off the bus and walking to her home when the next thing she realizes is waking up on the ground as she had LOC. Patient stated that there were no warning signs such as lightheadedness, except a severe headache she has been experiencing since leaving the hospital. 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 The patient scrapped her right knee due to the fall. Physical examination findings significant for patient is somewhat anxious and tearful. A Brain CT revealed 1. No acute intracranial abnormality. 2. No change from the comparison study. GCS: 15. An EKG revealed NSR at 74 BPM, P waves, QRS complex, and T waves are within normal limits, T waves and intervals are normal, no ischemic changes. This is a normal EKG. Hematology and Chemistry screens were done. No significant laboratory abnormalities were found. In the ED course, the patient received Toradol, Atarax , Ativan, and Compazine. Patient will be signed out to Dr. Lucille Cheek via Dr. Luke Calle, further workup and evaluation, upon shift change on 04/28/2018 at 2200. Discharge - Sign-Out/Discharge Documenting (check all that apply): Sign-Out Patient - JENNY Signing out patient TO: Lucille Cheek Receiving patient FROM: Luke Calle - Discharge Plan Condition: Stable Referrals: No Primary Care Phys,NOPCP [Primary Care Provider] - - Attestation Statements Document Initiated by Scribe: Yes Documenting Scribe: Melo Lares Provider For Whom Scribe is Documenting (Include Credential): Luke Calle MD Scribe Attestation: Melo Gary, scribed for Luke Calle MD on 04/28/18 at 2206. Status of Scribe Document: Ready
[2018-04-28 21:04] LABS: ABS Basophils 0 10^3/ul (0-0.2); ABS Eosinophils 0.1 10^3/ul (0-0.6); ABS Lymphocytes 1.9 10^3/ul (1.0-4.8); ABS Monocytes 0.7 10^3/ul (0-0.8); ABS Neutrophils 3.5 10^3/ul (1.5-7.7); ABS Nucleated RBC 0 10^3/ul; Eosinophil % 2.2 %; Hematocrit 47 % (35-47); Hemoglobin 15.9 g/dl (12.0-16.0); Lymphocyte % 30.6 %; Mean Corpuscular HGB Conc 34 g/dl (31-36); Mean Corpuscular Hemoglobin 31 pg (27-31); Mean Corpuscular Volume 92 fL (80-97); Mean Platelet Volume 7.5 fL (7.4-10.4); Nucleated Red Blood Cells % 0; Platelet Count 252 10^3/ul (150-450); Red Blood Count 5.12 10^6/ul (4.00-5.40); Red Cell Distribution Width 14 % (10.5-15); White Blood Count 6.3 10^3/ul (3.5-10.8)
[2018-04-28 21:20] LABS: Albumin 4.5 g/dL (3.2-5.2); Albumin/Globulin Ratio 1.7 (1-3); BUN/Creatinine Ratio 19.6 (8-20); Calcium 9.6 mg/dL (8.6-10.3); EGFR Non-African American 53.6 (>60); Globulin 2.6 g/dL (2-4); Potassium 3.8 mmol/L (3.5-5.0); Total Bilirubin 0.3 mg/dL (0.2-1.0); Total Protein 7.1 g/dL (6.4-8.9)
[2018-04-28 22:25] LABS: TSH (Thyroid Stimulating Horm) 1.21 mcIU/mL (0.34-5.60)
--- NOTE | 2018-04-28 23:48 | ED ---
Progress - Progress Note Progress Note: This patient was signed out from Dr. Calle to Dr. Cheek upon shift change at 22 :00 04/28/18 pending lab results and disposition. Lab results are WNL. In the ED course she was given Toradol IV, Compazine IV, Ativan PO and Atarax PO. She will be discharged. She was instructed to follow up with sai Michelle. Strict return precautions given. She is agreeable with this plan. Re-Evaluation - Re-Evaluation First Eval Re-Evaluation Time: 01:42 Change: Unchanged Comment: Patient is ready for discharge Course/Dx - Course Course Of Treatment: This patient was signed out from Dr. Calle to Dr. Cheek upon shift change at 22:00 04/28/18 pending lab results and disposition. Lab results are WNL. In the ED course she was given Toradol IV, Compazine IV, Ativan PO and Atarax PO. She will be discharged. She was instructed to follow up with sai Michelle. Strict return precautions given. She is agreeable with this plan. - Diagnoses Provider Diagnoses: Headache Discharge - Sign-Out/Discharge Documenting (check all that apply): Patient Departure - DC - Discharge Plan Condition: Stable Disposition: HOME Forms: *Work Release Referrals: [facility] [facility] [place]Outside] (1-2 days) Lance Roberson MD [Medical Doctor] - Additional Instructions: Follow up with sai Michelle. RETURN TO THE EMERGENCY DEPARTMENT FOR CHANGING OR WORSENING SYMPTOMS. FOLLOW UP WITH PCP IN 1-2 DAYS. - Billing Disposition and Condition Condition: STABLE Disposition: Home - Attestation Statements Document Initiated by Scribe: No Documenting Scribe: Tyler Pablo Provider For Whom Scribe is Documenting (Include Credential): Lucille Cheek MD Scribe Documentation Reviewed: Yes
[2018-04-29 01:46] VITALS: BP 115/78
== END | disposition home or self-care (01) ==
LOC: ED 20:02
DX: R51 Headache (principal); R11.0 Nausea; F17.210 Nicotine dependence, cigarettes, uncomplicated
CPT/HCPCS: 36415; 70450; 80053; 84443; 84484; 85025; 93005; 96361; 96374; 96375; 99282; A9270-GY; J0780; J1885

== ENCOUNTER 2018-05-09 15:05 | Emergency (ER) | payer SELFPAY ==
[2018-05-09 15:35] VITALS: BP 122/80
[2018-05-09] MEDS ORDERED: HYDROcodone/ACETAMIN 5-325 MG* 1 TAB PO ONE ×3 (15:47→16:23)
--- NOTE | 2018-05-09 15:49 | UC ---
Respiratory Complaint HPI - HPI Summary HPI Summary: right rib pain after falling on ice and hitting her ribs - History of Current Complaint Chief Complaint: UCGeneralIllness Stated Complaint: RIB INJURY Time Seen by Provider: 05/09/18 15:40 Hx Obtained From: Patient Hx Last Menstrual Period: hysterectomy ?: No Onset/Duration: Sudden Onset, Lasting Days Timing: Constant Pain Intensity: 8 Pain Scale Used: 0-10 Numeric Aggravating Factors: Deep Breaths Alleviating Factors: Nothing Associated Signs And Symptoms: Positive: Negative - Allergies/Home Medications Allergies/Adverse Reactions: Allergies Allergy/AdvReac Type Severity Reaction Status Date / Time Gadolinium-Containing Allergy Severe Shortness Verified 04/28/18 20:12 Contrast Medi of Breath PMH/Surg Hx/FS Hx/Imm Hx Previously Healthy: No - HIV - Surgical History Surgical History: Yes Surgery Procedure, Year, and Place: hysterectomy - Family History Known Family History: Positive: Diabetes - Social History Occupation: Employed Full-time Lives: Alone Alcohol Use: Rare Substance Use Type: Marijuana Smoking Status (MU): Light Every Day Tobacco Smoker - Immunization History Most Recent Influenza Vaccination: 2018 Most Recent Pneumonia Vaccination: 2008 Review of Systems All Other Systems Reviewed And Are Negative: Yes Constitutional: Positive: Negative Skin: Positive: Negative Eyes: Positive: Negative ENT: Positive: Negative Respiratory: Positive: Negative Cardiovascular: Positive: Negative Gastrointestinal: Positive: Negative Genitourinary: Positive: Negative Motor: Positive: Negative Neurovascular: Positive: Negative Musculoskeletal: Positive: Arthralgia - right rib Neurological: Positive: Negative Psychological: Positive: Negative Is Patient Immunocompromised?: No Physical Exam Triage Information Reviewed: Yes Appearance: Well-Appearing, No Pain Distress, Well-Nourished Vital Signs: Initial Vital Signs Temp 97.7 F 05/09/18 15:30 Pulse 83 05/09/18 15:30 Resp 16 05/09/18 15:30 BP 122/80 05/09/18 15:30 Pulse Ox 99 05/09/18 15:30 Vital Signs Reviewed: Yes Eye Exam: Normal Eyes: Positive: Conjunctiva Clear ENT Exam: Normal ENT: Positive: Normal ENT inspection, Hearing grossly normal. Negative: TMs normal, Trismus, Muffled voice, Hoarse voice Dental Exam: Normal Neck exam: Normal Neck: Positive: Supple, Nontender, No Lymphadenopathy Respiratory Exam: Normal Respiratory: Positive: Chest non-tender, Lungs clear, Normal breath sounds, No respiratory distress, No accessory muscle use Cardiovascular Exam: Normal Cardiovascular: Positive: RRR, No Murmur, Pulses Normal, Brisk Capillary Refill Abdominal Exam: Normal Abdomen Description: Positive: Nontender, No Organomegaly, Soft. Negative: CVA Tenderness (R), CVA Tenderness (L) Bowel Sounds: Positive: Present Musculoskeletal Exam: Normal Musculoskeletal: Positive: Strength Intact, ROM Intact, No Edema Neurological Exam: Normal Neurological: Positive: Alert, Muscle Tone Normal Psychological Exam: Normal Skin Exam: Normal UC Diagnostic Evaluation - Laboratory O2 Sat by Pulse Oximetry: 99 - Radiology Summary of Radiographic Findings: no evidence of fracture Respiratory Course/Dx - Course Course Of Treatment: ice/heat - Differential Dx/Diagnosis Provider Diagnosis: Contusion of rib on right side Discharge - Sign-Out/Discharge Documenting (check all that apply): Patient Departure All imaging exams completed and their final reports reviewed: No Studies - Discharge Plan Condition: Stable Disposition: HOME Prescriptions: Ibuprofen TAB* [Motrin TAB* 600 MG] 600 mg PO Q6H PRN #30 tab PRN Reason: pain Patient Education Materials: Rib Contusion (ED) Referrals: No Primary Care Phys,NOPCP [Primary Care Provider] - - Billing Disposition and Condition Condition: STABLE Disposition: Home
== END 2018-05-09 16:35 | disposition home or self-care (01) ==
LOC: UCEAST 15:05
DX: S20.211A Contusion of right front wall of thorax, initial encounter (principal); W00.0XXA Fall on same level due to ice and snow, initial encounter; Y92.9 Unspecified place or not applicable; Z91.041 Radiographic dye allergy status; F17.200 Nicotine dependence, unspecified, uncomplicated
CPT/HCPCS: 99213; G0463

== ENCOUNTER 2018-06-01 13:28 | Emergency (ER) | payer MEDICAID ==
--- NOTE | 2018-06-01 14:08 | UC ---
Respiratory Complaint HPI - HPI Summary HPI Summary: 42 yo female presents with right rib pain. She tells me that about 3 weeks ago she fell and injured her right ribs. She was seen here and had a ribs and CXR that was negative. She was given a short course of pain medication, which helped. Since that time has been in significant pain that is not improved with ibuprofen. She states that she is breathing very shallow due to pain. Hurts to move, cough, or take deep breaths. Denies SOB, chest pain. - History of Current Complaint Chief Complaint: UCRespiratory Stated Complaint: RECHECK RIB INJURY Time Seen by Provider: 06/01/18 14:08 Hx Obtained From: Patient Hx Last Menstrual Period: hysterectomy Onset/Duration: Sudden Onset Severity Initially: Severe Severity Currently: Severe Pain Intensity: 8 Pain Scale Used: 0-10 Numeric - Allergies/Home Medications Allergies/Adverse Reactions: Allergies Allergy/AdvReac Type Severity Reaction Status Date / Time Gadolinium-Containing Allergy Severe Shortness Verified 06/01/18 13:50 Contrast Medi of Breath PMH/Surg Hx/FS Hx/Imm Hx - Additional Past Medical History Additional PMH: HIV Psychological History: Anxiety - Surgical History Surgical History: Yes Surgery Procedure, Year, and Place: hysterectomy - Family History Known Family History: Positive: Diabetes - Social History Occupation: Employed Full-time Lives: With Family Alcohol Use: None Substance Use Type: Marijuana Smoking Status (MU): Light Every Day Tobacco Smoker Amount Used/How Often: 2-3 cig/day Household Exposure Type: Cigarettes - Immunization History Most Recent Influenza Vaccination: 2018 Most Recent Pneumonia Vaccination: 2007 Review of Systems All Other Systems Reviewed And Are Negative: Yes Constitutional: Positive: Negative Skin: Positive: Negative Respiratory: Positive: Negative Cardiovascular: Positive: Negative Gastrointestinal: Positive: Negative Neurovascular: Positive: Negative Musculoskeletal: Positive: Other: - Right rib pain Neurological: Positive: Negative Psychological: Positive: Negative Physical Exam - Summary Physical Exam Summary: GENERAL: Moderate pain distress SKIN: No rashes, sores, lesions, or open wounds. NECK: Supple. Nontender. No lymphadenopathy. CHEST: CTAB. No r/r/w. No accessory muscle use. Shallow breathing. Holding right side due to pain CV: RRR. Without m/r/g. Pulses intact. Cap refill <2seconds MSK: Moderate TTP along ~9th/10th rib midaxillary and anterior aspect. Pain with twisting and UE movement. Abdomen: NTTP. Bowel sounds present. No ecchymosis or distention. NEURO: Alert. PSYCH: Age appropriate behavior. Triage Information Reviewed: Yes Vital Signs: Initial Vital Signs Temp 97.9 F 06/01/18 13:43 Pulse 110 06/01/18 13:43 Resp 18 06/01/18 13:43 BP 129/82 06/01/18 13:43 Pulse Ox 100 06/01/18 13:43 Vital Signs Reviewed: Yes UC Diagnostic Evaluation - Laboratory O2 Sat by Pulse Oximetry: 100 Re-Evaluation - Re-Evaluation First Eval Change: Worse - Acute pain distress. Inconsolable. Crying. HEENT: Airway patent and without edema. No facial edema. CHEST: CTAB. Hyperventilating. CV: RRR. Without m/r/g. Pulses intact. Brisk cap refill. NEURO: Exam limited due to acute pain. A&Ox3. III, IV, : EOMI. No nystagmus. PERRLA. V: Sensations intact and symmetric. VII: No facial asymmetry. Forehead wrinkles. Grins, shuts eyes, frowns, puffs cheeks. IX, X: Swallows and coughs. Uvula midline. XII: No tongue deviation [id number] are intact. Normal speech. No facial drooping. BP 151/112 Respiratory Course/Dx - Course Course Of Treatment: She was given norco for her pain in the clinic. CT: IMPRESSION: #. Subacute fracture of the RIGHT seventh rib anteriorly with early fracture healing. response. #. Negative for pleural effusion or pneumothorax. Was urgently called to the pt's room by nurse due to pain distress. Upon entering the room, pt was clutching her left eye and dry heaving. She was screaming in pain saying that she developed an acute left sided headache, dizziness, tingling of her fingers/lips, and "hazy" vision. She felt very weak and unable to stand. She said that this happened to her once in the recent past and she was admitted to the hospital for a workup and everything was normal - per pt. At this point she was transferred to a wheelchair and brought to a strecher. Placed on 2L O2 as she was hyperventilating and in inconsolable pain. She states she has had norco in the past without issue. Has a hx of migraines, but not similar to this. Ambulance was called due to uncontrolled/inconsolable acute pain. EKG performed and revealed NSR 92bpm No ST changes as read by Dr. Vázquez. NIHSS score of 0 (see re -eval for exam). Ambulance arrived and transferred pt to ED for further evaluation. I am unsure the cause of her abrupt severe pain and other symptoms. Low suspicion for CVA at this time. Suspect it could be a cluster migraine, but this would be an unusual presentation. - Differential Dx/Diagnosis Provider Diagnosis: Rib fracture, Headache, Dizziness, Weakness Discharge - Sign-Out/Discharge Documenting (check all that apply): Patient Departure All imaging exams completed and their final reports reviewed: Yes - Discharge Plan Condition: Stable Disposition: TRANS HIGHER LVL OF CARE FAC Referrals: No Primary Care Phys,NOPCP [Primary Care Provider] - - Billing Disposition and Condition Condition: STABLE Disposition: Trans Higher Lvl of Care Fac
[2018-06-01] MEDS ORDERED: HYDROcodone/ACETAMIN 5-325 MG* 1 TAB PO ONE (14:17)
[2018-06-01] MEDS ORDERED: Ondansetron ODT TAB* 4 MG SL ONE (15:07)
[2018-06-01 15:26] VITALS: BP 152/112
== END 2018-06-01 15:30 | disposition short-term general hospital (02) ==
LOC: UCEAST 13:28
DX: S22.31XA Fracture of one rib, right side, initial encounter for closed fracture (principal); W19.XXXA Unspecified fall, initial encounter; Y92.9 Unspecified place or not applicable; R51 Headache; R42 Dizziness and giddiness; R53.1 Weakness; Z91.041 Radiographic dye allergy status; F17.210 Nicotine dependence, cigarettes, uncomplicated
CPT/HCPCS: 71250; 99213; G0463

== ENCOUNTER 2018-09-23 10:24 | Emergency (ER) | payer SELFPAY ==
[2018-09-23 10:39] VITALS: BP 130/82
--- NOTE | 2018-09-23 10:56 | UC ---
Respiratory Complaint HPI - HPI Summary HPI Summary: 42 yo female presents with sinus pain/pressure/congestion, sore throat, and dry cough for the last week. She feels short of breath at times with her cough. She has not been taking anything OTC for her symptoms. She smokes 2-3 cigs daily. She is HIV+, but states viral load has been low. Denies fever, chills, chest pain, abdominal pain, n/v. - History of Current Complaint Chief Complaint: UCRespiratory Stated Complaint: CHEST CONGESTION FEWVER COUGH Time Seen by Provider: 09/23/18 10:56 Hx Obtained From: Patient Hx Last Menstrual Period: hyster Onset/Duration: Gradual Onset Severity Initially: Mild Severity Currently: Mild Pain Intensity: 4 Pain Scale Used: 0-10 Numeric - Allergies/Home Medications Allergies/Adverse Reactions: Allergies Allergy/AdvReac Type Severity Reaction Status Date / Time Gadolinium-Containing Allergy Severe Shortness Verified 09/23/18 10:40 Contrast Medi of Breath PMH/Surg Hx/FS Hx/Imm Hx - Additional Past Medical History Additional PMH: HIV positive Anxiety - Surgical History Surgical History: Yes Surgery Procedure, Year, and Place: hysterectomy - Family History Known Family History: Positive: Diabetes - Social History Occupation: Employed Full-time Lives: With Family Alcohol Use: None Substance Use Type: Marijuana Smoking Status (MU): Light Every Day Tobacco Smoker Amount Used/How Often: 2-3 cig/day Household Exposure Type: Cigarettes - Immunization History Most Recent Influenza Vaccination: 2018 Most Recent Pneumonia Vaccination: 2007 Review of Systems All Other Systems Reviewed And Are Negative: Yes Constitutional: Positive: Negative Skin: Positive: Negative Eyes: Positive: Negative ENT: Positive: Nasal Discharge, Sinus Congestion, Sinus Pain/Tenderness Respiratory: Positive: Shortness Of Breath, Cough Cardiovascular: Positive: Negative Gastrointestinal: Positive: Negative Neurovascular: Positive: Negative Neurological: Positive: Negative Psychological: Positive: Negative Physical Exam - Summary Physical Exam Summary: GENERAL: NAD. WDWN. No pain distress. SKIN: No rashes, sores, lesions, or open wounds. HEENT: Head: AT/NC Eyes: Conjunctiva clear without inflammation or discharge. Ears: Hearing grossly normal. TMs intact, no bulging, erythema, or edema. Nose: Nasal mucosa pink and moist without discharge. TTP maxillary sinus. Throat: Posterior oropharynx without exudates, erythema, or tonsillar enlargement. Uvula midline. NECK: Supple. Nontender. No lymphadenopathy. CHEST: Mild wheezing throughout. No r/r. No accessory muscle use. Breathing comfortably and in no distress. CV: RRR. Without m/r/g. Pulses intact. Cap refill <2seconds NEURO: Alert. PSYCH: Age appropriate behavior. Triage Information Reviewed: Yes Vital Signs: Initial Vital Signs Temp 98.6 F 09/23/18 10:37 Pulse 109 09/23/18 10:37 Resp 20 09/23/18 10:37 BP 130/82 09/23/18 10:37 Pulse Ox 99 09/23/18 10:37 Vital Signs Reviewed: Yes Respiratory Course/Dx - Course Course Of Treatment: CXR: IMPRESSION: NO ACTIVE CARDIOPULMONARY DISEASE. Duoneb: pt reports feeling less coughing and wheezing in her chest Suspect bronchitis/sinusitis. Will rx for Augmentin given her HIV status. - Differential Dx/Diagnosis Provider Diagnosis: Bronchitis, Sinusitis Discharge - Sign-Out/Discharge Documenting (check all that apply): Patient Departure All imaging exams completed and their final reports reviewed: Yes - Discharge Plan Condition: Stable Disposition: HOME Prescriptions: Amoxicillin/Clavulanate TAB* [Augmentin TAB 875*] 875 mg PO BID #14 tab Codeine Phosphate/Guaifenesin [Guaifen-Codeine 100-10 mg/5 ml] 5 ml PO BID PRN # 60 ml MDD 10mL PRN Reason: Cough Patient Education Materials: Acute Bronchitis (ED) Forms: *Work Release Referrals: Cherri John PA [Primary Care Provider] - Additional Instructions: If you develop a fever, shortness of breath, chest pain, new or worsening symptoms - please call your PCP or go to the ED immediately. - Billing Disposition and Condition Condition: STABLE Disposition: Home
[2018-09-23] MEDS ORDERED: Albuterol/Ipratropium NEB.SOL* Albuterol 2.5 MG/Ipratropium 0.5 MG 3 ML INH ONE (11:09)
== END 2018-09-23 12:05 | disposition home or self-care (01) ==
LOC: UCEAST 10:24
DX: J40 Bronchitis, not specified as acute or chronic (principal); J32.9 Chronic sinusitis, unspecified; Z21 Asymptomatic human immunodeficiency virus [HIV] infection status; F17.210 Nicotine dependence, cigarettes, uncomplicated
CPT/HCPCS: 71046; 99212; A9270-GY; G0463

== ENCOUNTER 2018-09-27 13:15 | Inpatient (IN) | payer SELFPAY ==
--- NOTE | 2018-09-27 13:45 | ED ---
Psychiatric Complaint - HPI Summary HPI Summary: A 42 y/o F presents to ED for MHE due to recent stress ongoing for past three days. She states she hasn't been alone for the past 3 days, because she's worried she might do something. 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 Pt is seen at [facility], but says they treat her like an addict, which she is not. She is not taking suboxone. She takes Prozac and Xanax. PHMx: anxiety, agoraphobic. Patient is afebrile in ED. - History Of Current Complaint Chief Complaint: EDMentalHealth Time Seen by Provider: 09/27/18 13:37 Hx Obtained From: Patient Hx Last Menstrual Period: hyster Onset/Duration: Lasting Days Timing: Constant Severity Currently: Severe Has Suicidal: Reports: Thoughts - Allergies/Home Medications Allergies/Adverse Reactions: Allergies Allergy/AdvReac Type Severity Reaction Status Date / Time Gadolinium-Containing Allergy Severe Shortness Verified 09/27/18 13:25 Contrast Medi of Breath Home Medications: Home Medications Gabapentin 800 mg PO 1600 09/27/18 [History Confirmed 09/27/18] Gabapentin [Neurontin] 100 mg PO 1600 09/27/18 [History Confirmed 09/27/18] Propranolol TAB* [Inderal TAB*] 20 mg PO 1600 09/27/18 [History Confirmed ] PMH/Surg Hx/FS Hx/Imm Hx Previously Healthy: No - HIV+ Endocrine/Hematology History: Denies: Hx Diabetes Cardiovascular History: Denies: Hx Pacemaker/ICD Respiratory History: Reports: Hx Pneumonia History: Denies: Hx Kidney Infection Musculoskeletal History: Reports: Hx Back Problems Sensory History: Denies: Hx Contacts or Glasses, Hx Legally Blind, Hx Deafness, Hx Hearing Aid Opthamlomology History: Denies: Hx Contacts or Glasses, Hx Legally Blind Neurological History: Reports: Hx Seizures Denies: Hx CVA, Hx Headaches, Hx Migraine, Hx Nerve Disease, Hx Spinal Cord Injury Psychiatric History: Reports: Hx Anxiety, Other Psychiatric Issues/Disorders - agoraphobia Denies: Hx Panic Disorder - Surgical History Surgery Procedure, Year, and Place: hysterectomy Infectious Disease History: No Infectious Disease History: Reports: Hx Human Immunodeficiency Virus (HIV) Denies: Hx of Known/Suspected MRSA, Traveled Outside the [place] in Last 30 Days - Family History Known Family History: Positive: Diabetes - Social History Occupation: Employed Full-time Lives: Alone Alcohol Use: None Hx Substance Use: Yes Substance Use Type: Reports: Marijuana Hx Tobacco Use: Yes Smoking Status (MU): Light Every Day Tobacco Smoker Amount Used/How Often: 2-3 cig/day Review of Systems Negative: Fever Psychological: Other - pos: SI All Other Systems Reviewed And Are Negative: Yes Physical Exam - Summary Physical Exam Summary: Appearance: The patient is well-nourished in no acute distress and in no acute pain. Skin: The skin is warm and dry and skin color reflects adequate perfusion. HEENT: The head is normocephalic and atraumatic. The pupils are equal and reactive. The conjunctivae are clear and without drainage. Nares are patent and without drainage. Mouth reveals moist mucous membranes and the throat is without erythema and exudate. The external ears are intact. The ear canals are patent and without drainage. The tympanic membranes are intact. Neck: the neck is supple with full range of motion and non-tender. There are no carotid bruits. There is no neck vein distension. Respiratory: Chest is non-tender. Lungs are clear to auscultation and breath sounds are symmetrical and equal. Cardiovascular: Heart is regular rate and rhythm. There is no murmur or rub auscultated. There is no peripheral edema and pulses are symmetrical and equal. Abdomen: The abdomen is soft and non-tender. There are normal bowel sounds heard in all four quadrants and there is no organomegaly palpated. Musculoskeletal: There is no back tenderness noted. Extremities are non-tender with full range of motion. There is good capillary refill. There is no peripheral edema or calf tenderness elicited. Neurological: Patient is alert and oriented to person, place and time. The patient has symmetrical motor strength in all four extremities. Cranial nerves are grossly intact. Deep tendon reflexes are symmetrical and equal in all four extremities. Psychiatric: The patient is emotionally labile. Triage Information Reviewed: Yes Vital Signs On Initial Exam: Initial Vitals Temp Pulse Resp BP Pulse Ox 97.7 F 93 20 113/69 96 09/27/18 13:21 09/27/18 13:21 09/27/18 13:21 09/27/18 13:21 09/27/18 13:21 Vital Signs Reviewed: Yes Diagnostics - Vital Signs Vital Signs Temp Pulse Resp BP Pulse Ox 09/27/18 13:21 97.7 F 93 20 113/69 96 - Laboratory Result Diagrams: 09/27/18 15:23 09/27/18 15:23 Lab Statement: Any lab studies that have been ordered have been reviewed, and results considered in the medical decision making process. Course/Dx - Course Course Of Treatment: Ms. Gallego came and expressing suicidal ideation and a concern that she was going herself. She made her statements vague but she clearly implied that she might not survive for much longer. She complains to me that her primary care doctor has been cutting down on her benzodiazepines and that she needs more area. I also practice in the same office and a review of her chart reveals that her doctor has considered cutting back on her benzodiazepines but has not done so yet. She is waiting for an evaluation by psychiatric specialists on October 11. The patient also is requesting her normal doses of medication but doesn't give me than normal amounts that are prescribed she requests 800 mg of gabapentin and is prescribed 300 mg 3 times a day. Patient is medically clear for MHE at 1634. At this time the decision has been made by Dr. Mckeon to admit her. There is no room here though she is so she will have to be transferred and we are waiting transfer arrangements. - Differential Dx/Clinical Impression Provider Diagnosis: Mood disorder - Physician Notifications Discussed Care Of Patient With: Joel Mckeon Discharge - Sign-Out/Discharge Documenting (check all that apply): Sign-Out Patient Signing out patient TO: Lucille Cheek Receiving patient FROM: Luke Mendez - Discharge Plan Condition: Stable Referrals: Cherri John PA [Primary Care Provider] - - Billing Disposition and Condition Condition: STABLE - Attestation Statements Document Initiated by Scribe: Yes Documenting Scribe: Misael Lazaro Provider For Whom Alejandro is Documenting (Include Credential): Dr. Luke Mendez MD Scribe Attestation: Misael Gary scribed for Dr. Luke Mendez MD on 09/27/18 at 2051. Scribe Documentation Reviewed: Yes Provider Attestation: The documentation as recorded by the alejandro, Misael Lazaro accurately reflects the service I personally performed and the decisions made by me, Dr. Luke Mendez MD Status of Scribkeshia Document: Viewed
[2018-09-27 15:17] LABS: Urine Appearance Clear; Urine Bilirubin Negative (Negative); Urine Blood Negative (Negative); Urine Color Straw; Urine Glucose Negative (Negative); Urine Ketones Negative (Negative); Urine Nitrite Negative (Negative); Urine Protein Negative (Negative); Urine Specific Gravity 1.006 (1.010-1.030); Urine Urobilinogen Negative (Negative)
[2018-09-27 15:32] LABS: ABS Basophils 0.1 10^3/ul (0-0.2); ABS Eosinophils 0.1 10^3/ul (0-0.6); ABS Monocytes 0.8 10^3/ul (0-0.8); ABS Neutrophils 4.8 10^3/ul (1.5-7.7); Eosinophil % 1.6 %; Hematocrit 43 % (35-47); Hemoglobin 15.2 g/dL (12.0-16.0); Lymphocyte % 26.1 %; Mean Corpuscular HGB Conc 36 g/dL (31-36); Mean Corpuscular Hemoglobin 32 pg (27-31); Mean Corpuscular Volume 89 fL (80-97); Mean Platelet Volume 7.4 fL (7.4-10.4); Nucleated Red Blood Cells % 0.2; Platelet Count 315 10^3/uL (150-450); Red Blood Count 4.78 10^6 /uL (3.70-4.87); Red Cell Distribution Width 14 % (10-15); White Blood Count 7.8 10^3/uL (3.5-10.8)
[2018-09-27 15:49] LABS: Albumin 4.3 g/dL (3.2-5.2); Anion Gap 7 mmol/L (2-11); CO2 Carbon Dioxide 24 mmol/L (22-32); Chloride 106 mmol/L (101-111); Potassium 4.2 mmol/L (3.5-5.0); Sodium 137 mmol/L (135-145)
[2018-09-27 15:55] LABS: ALT 15 U/L (7-52); AST 18 U/L (13-39); Albumin/Globulin Ratio 1.3 (1-3); Alkaline Phosphatase 72 U/L (34-104); BUN/Creatinine Ratio 15.1 (8-20); Blood Urea Nitrogen 18 mg/dL (6-24); EGFR African American 60.5 (>60); Globulin 3.4 g/dL (2-4); Glucose 111 mg/dL (70-100); Total Protein 7.7 g/dL (6.4-8.9)
[2018-09-27 16:08] LABS: HCG Pregnancy 0.82 mIU/mL
[2018-09-27 16:17] LABS: Urine Benzodiazepine Screen Presumptive Positive (None Detect); Urine Opiates Screen None Detected (None Detect)
[2018-09-27 16:19] LABS: TSH (Thyroid Stimulating Horm) 1.45 mcIU/mL (0.34-5.60)
[2018-09-27 16:32] LABS: Acetaminophen < 15 mcg/mL; Alcohol < 10 mg/dL (<10); Salicylate < 2.50 mg/dL (<30)
[2018-09-27] MEDS ORDERED: FLUoxetine CAP* 20 MG PO ONE (16:35)
[2018-09-27] MEDS ORDERED: Gabapentin CAP(*) 300 MG PO ONE (16:35)
[2018-09-27] MEDS ORDERED: ALPRAZolam TAB* 0.5 MG PO ONE (16:35)
[2018-09-27] MEDS ORDERED: Propranolol TAB* 20 MG PO ONE (19:12)
[2018-09-27] MEDS: Nicotine* 2MG (FRUIT FLAVOR) GUM PO PRN (22:06)
[2018-09-28] MEDS ORDERED: hydrOXYzine HCL TAB* 50 MG PO ONE (00:45)
[2018-09-28] MEDS ORDERED: hydrOXYzine HCL TAB* 50 MG ONE (00:52)
[2018-09-28] MEDS ORDERED: ALPRAZolam TAB* 0.5 MG ONE (00:52)
[2018-09-28] MEDS ORDERED: Al Hydrox/Mg Hydrox/Simet LIQ* 30 ML UDC PO PRN (00:58)
--- NOTE | 2018-09-28 04:29 | ED ---
Progress - Progress Note Progress Note: Patient is received as a sign-out from Dr. Mendez to Dr. Cheek at 2200 09/27/18 shift end pending disposition of this mental health patient. 2349 - Patient will be admitted to [facility] under Dr. Mckeon. Dr. Cheek is agreeable with this. - Consult/PCP Time Called: 16:34 Course/Dx - Course Course Of Treatment: Patient is received as a sign-out from Dr. Mendez to Dr. Cheek at 2200 09/27/18 shift end pending disposition of this mental health patient. 2349 - Patient will be admitted to [facility] under Dr. Mckeon. Dr. Cheek is agreeable with this. - Diagnoses Provider Diagnoses: Mood disorder - Provider Notifications Discussed Care Of Patient With: Joel Mckeon Time Discussed With Above Provider: 23:50 Instructed by Provider To: Other - 2349 - Patient will be admitted to [facility] under Dr. Mckeon. Dr. Cheek is agreeable with this. Discharge - Sign-Out/Discharge Documenting (check all that apply): Patient Departure - admit All imaging exams completed and their final reports reviewed: No Studies Patient Received Moderate/Deep Sedation with Procedure: No - Discharge Plan Condition: Good Disposition: PSYCHIATRIC FACILITY-[facility] [place] - Attestation Statements Document Initiated by Scribe: Yes Documenting Scribe: CANDIDA BUSTOS Provider For Whom Scribe is Documenting (Include Credential): SHANEKA CHEEK MD Scribe Attestation: CANDIDA Gary, scribed for SHANEKA CHEEK MD on 09/28/18 at 0612. Status of Scribe Document: Ready
[2018-09-28] MEDS ORDERED: Propranolol TAB* 20 MG PO SCH (09:00)
[2018-09-28] MEDS ORDERED: ALPRAZolam TAB* 0.5 MG PO SCH (09:00)
[2018-09-28] MEDS: Amoxicillin/Clavulanate TAB* 875 MG PO SCH ×2 (09:50→21:33)
[2018-09-28] MEDS: Vitamin THERAPEUTIC TAB PO SCH (09:50)
[2018-09-28] MEDS: Nicotine PATCH 14 MG/24 HR* PATCH TRANSDERM SCH (09:50)
[2018-09-28] MEDS ORDERED: LORazepam TAB(*) 1 MG ONE (09:53)
[2018-09-28] MEDS ORDERED: LORazepam TAB(*) 1 MG PO ONE (10:04)
[2018-09-28] MEDS: guaiFENesin/CODIEN 100MG-10MG* 5 ML UDC PO PRN ×2 (10:34→21:37)
[2018-09-28] MEDS: BIKTARVY PO SCH (10:56)
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
[2018-09-28] MEDS: clonazePAM TAB(*) 1 MG PO SCH ×2 (16:03→21:31)
[2018-09-28] MEDS: Gabapentin CAP(*) 400 MG PO SCH ×2 (16:04→21:32)
[2018-09-28] MEDS ORDERED: Prazosin CAP* 1 MG PO SCH (21:00)
[2018-09-28] MEDS: Acetaminophen TAB* 325 MG PO PRN (21:37)
[2018-09-28] MEDS: Nicotine Patch Removal NOTE PATCH OFF SCH (21:42)
[2018-09-29] MEDS: guaiFENesin/CODIEN 100MG-10MG* 5 ML UDC PO PRN ×2 (04:32→15:19)
[2018-09-29] MEDS ORDERED: clonazePAM TAB(*) 1 MG PO ONE (04:45)
[2018-09-29] MEDS: clonazePAM TAB(*) 1 MG PO SCH ×4 (05:01→21:07)
[2018-09-29] MEDS: FLUoxetine CAP* 20 MG PO SCH (09:52)
[2018-09-29] MEDS: Nicotine PATCH 14 MG/24 HR* PATCH TRANSDERM SCH (09:52)
[2018-09-29] MEDS: Amoxicillin/Clavulanate TAB* 875 MG PO SCH ×2 (09:52→21:06)
[2018-09-29] MEDS: BIKTARVY PO SCH (09:52)
[2018-09-29] MEDS: Vitamin THERAPEUTIC TAB PO SCH (09:52)
[2018-09-29] MEDS: Gabapentin CAP(*) 400 MG PO SCH ×3 (09:52→21:06)
[2018-09-29] MEDS: Acetaminophen TAB* 325 MG PO PRN ×2 (09:56→21:11)
[2018-09-29] MEDS ORDERED: Gabapentin CAP(*) 400 MG PO SCH (14:00)
--- NOTE | 2018-09-29 14:56 | PN ---
Subjective - Subjective Date of Service: 09/29/18 Service Type: 02360 Hosp care 25 min moderate complexity Subjective: I met with Lillian along with Rula Odonnell LCSW. We discussed her symptoms of "regression" which could be described in her case as depersonalization, derealization, and panic. Lillian appears lost, upset, and physically uncomfortable. She shakes and sighs and is clearly struggling to stay in control of herself. Lillian does request a fair number of medications including increased gabapentin, oxycodone, and a higher dose of Klonopin. Checking her CASHIER MANAGER, it does appear that she did receive oxycodone and higher doses of Xanax. I will provide the oxycodone while she's here, but will not prescribe it for her outside the hospital. This was discussed very specifically and clearly. We are increasing the prazosin to 3 mg at night. Lillian's daughter, Medina who is 17, has a 2-month-old son who has visited Lillian on the unit. Tonight I declined to allow Medina's son visit Lillian as the acuity of the unit was too high. Lillian was very angry. Objective - General Observations Appearance: Disheveled Appears Stated Age: Yes Stature: Overweight Posture: Slumped Eye Contact: Avoidant Behavior/Activity: Slowed, Agitated - Interaction Observations Attitude Towards Examiner: Anxious, Defensive, Demanding Stated Mood: Dysphoric, Irritable, Anxious Affect: Restricted Speech Pattern/Tone: Clear Thought Process: Coherent, Disorganized, [place] Perception: Depersonalization, Derealization Thought Content: Preoccupation/Ruminations, Depressive Thought Process: Lethality: Passive Wish Hallucination Type: None Delusion Type: None - Cognitive Function Orientation: A&O x 4 Level of Consciousness: Awake, Alert, Appropriate Cognition: Impaired Cognition, Impaired Ability to Abstract Estimated Intelligence: Normal Insight: Mostly Blames Others for Problems Judgment Within Normal Limits: No Ability to Make Reasonable Decisions: Serverely Impaired - Medication Compliance Cooperative with Inpatient Medication Regimen: Yes - Group Participation Participates in Group Activities: Partial Assessment - Assessment Merits Inpatient Hospitalization: For Immediate Safety Clinical Impression: Lillian is a 42-year-old woman with a traumatic past who comes to the hospital incapacitated by fears and anxieties that have never been managed and who has significant psychosocial stressors and limited insight. Plan - Plan Treatment Plan: Name: LILLIAN MONROY Birthdate: 1975 [id number] Limit access to grandson due to unit acuity. Increase prazosin to 3 mg. Increase gabapentin, continue Klonopin, start oxycodone for the duration of the hospitalization but not for outpatient. Medications: Current Medications Acetaminophen (Tylenol Tab*) 650 mg PO Q4H PRN PRN Reason: PAIN or TEMP > 101 F Last Admin: 09/29/18 09:56 Dose: 650 mg Al Hydrox/Mg Hydrox/Simethicone (Maalox Plus*) 30 ml PO Q4H PRN PRN Reason: INDIGESTION Amoxicillin/Clavulanate Potassium (Augmentin Tab*) 875 mg PO BID [facility] Stop: 10/04/18 08:59 Last Admin: 09/29/18 09:52 Dose: 875 mg Clonazepam (Klonopin Tab(*)) 1 mg PO TID [facility] Last Admin: 09/29/18 14:02 Dose: 1 mg Fluoxetine HCl (Prozac Cap*) 80 mg PO DAILY [facility] Last Admin: 09/29/18 09:52 Dose: 80 mg Gabapentin (Neurontin Cap(*)) 800 mg PO QID [facility] Guaifenesin/Codeine Phosphate (Robitussin Ac 100mg-10mg*) 5 ml PO BID PRN PRN Reason: COUGH Last Admin: 09/29/18 04:32 Dose: 5 ml Multivitamins (Theragran Tab*) 1 tab PO DAILY [facility] Last Admin: 09/29/18 09:52 Dose: 1 tab Nicotine (Nicotine Patch 14 Mg/24 Hr*) 1 patch TRANSDERM DAILY [facility] Last Admin: 09/29/18 09:52 Dose: 1 patch Nicotine Polacrilex (Nicotine Gum*) 2 mg PO Q2H PRN PRN Reason: CRAVING Last Admin: 09/27/18 22:06 Dose: 2 mg Pto:Biktarvy 50-200- (25 Mg Tab) 1 dose PO DAILY [facility] Last Admin: 09/29/18 09:52 Dose: 1 dose Oxycodone HCl (Roxycodone Tab*) 10 mg PO TID [facility] Pharmacy Profile Note (Nicotine Patch Removal Note*) 1 note PATCH OFF 2100 [facility] Last Admin: 09/28/18 21:42 Dose: 1 note Prazosin HCl (Minipress Cap*) 1 mg PO BEDTIME [facility] Last Admin: 09/28/18 21:32 Dose: 1 mg
[2018-09-29] MEDS: oxyCODONE TAB* 5 MG TAB PO SCH ×2 (15:19→21:05)
[2018-09-29] MEDS ORDERED: LORazepam TAB(*) 1 MG ONE (17:01)
[2018-09-29] MEDS ORDERED: LORazepam TAB(*) 1 MG PO ONE (18:10)
[2018-09-29] MEDS ORDERED: Prazosin CAP* 1 MG PO SCH (21:00)
[2018-09-29] MEDS: Nicotine Patch Removal NOTE PATCH OFF SCH (21:08)
[2018-09-29] MEDS: Nicotine* 2MG (FRUIT FLAVOR) GUM PO PRN (21:12)
[2018-09-30] MEDS: Gabapentin CAP(*) 400 MG PO SCH ×2 (08:32→13:42)
[2018-09-30] MEDS: clonazePAM TAB(*) 1 MG PO SCH ×2 (08:32→13:42)
[2018-09-30] MEDS: Vitamin THERAPEUTIC TAB PO SCH (08:34)
[2018-09-30] MEDS: FLUoxetine CAP* 20 MG PO SCH (08:34)
[2018-09-30] MEDS: oxyCODONE TAB* 5 MG TAB PO SCH ×2 (08:35→13:42)
[2018-09-30] MEDS: Amoxicillin/Clavulanate TAB* 875 MG PO SCH (08:37)
[2018-09-30] MEDS: BIKTARVY PO SCH (08:38)
[2018-09-30] MEDS: Nicotine PATCH 14 MG/24 HR* PATCH TRANSDERM SCH (08:39)
[2018-09-30] MEDS ORDERED: ARIPiprazole TAB* 5 MG PO SCH (09:00)
[2018-09-30 09:16] VITALS: BP 126/96
[2018-09-30 09:56] LABS: HDL Cholesterol 37.4 mg/dL
[2018-09-30] MEDS: guaiFENesin/CODIEN 100MG-10MG* 5 ML UDC PO PRN (13:41)
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
== END 2018-09-30 14:00 | disposition home or self-care (01) | DRG 881 ==
LOC: ED 13:15 → BSU 22:45
PROVIDERS: ADMIT Psychiatry & Neurology Psychiatry; ATTEND Psychiatry & Neurology Psychiatry
DX: F32.9 Major depressive disorder, single episode, unspecified (principal); F60.89 Other specific personality disorders; F43.10 Post-traumatic stress disorder, unspecified; M54.9 Dorsalgia, unspecified; F41.0 Panic disorder [episodic paroxysmal anxiety]; Z21 Asymptomatic human immunodeficiency virus [HIV] infection status; Z91.5 Personal history of self-harm; Z91.041 Radiographic dye allergy status; Z91.410 Personal history of adult physical and sexual abuse
CPT/HCPCS: 36415; 80053; 80061; 80307; 80320; 80329; 81003; 83036; 84443; 84702; 85025; 99222; 99232; 99238; 99284; A9270-GY; G0480